=== PATIENT | female | born 1970 ===

== ENCOUNTER 2018-01-27 09:51 | Emergency (ER) | payer OTHER ==
[2018-01-27 09:56] VITALS: BP 115/81; PULSE 91; RESP 18; TEMP 99; O2SAT 100
--- NOTE | 2018-01-27 10:15 | C.PDOC ---
History Of Present Illness 47 y/o female presents to the ED for evaluation of a pruritic rash to the right shoulder and bilateral legs, developing for the past 2 days. Patient states she traveled from [place] on Sunday, and stayed with her grandmother. She then noticed itchy rash and discomfort onset last night. She denies any fevers, lip/tongue swelling, difficulty breathing, or other complaints. Patient denies taking any medication for symptom relief. Time Seen by Provider: 01/27/18 10:10 Chief Complaint (Nursing): Abnormal Skin Integrity History Per: Patient History/Exam Limitations: no limitations Onset/Duration Of Symptoms: Days (x2) Current Symptoms Are (Timing): Still Present Location Of Injury: Right: Leg, Shoulder, Left: Leg Past Medical History Reviewed: Historical Data, Nursing Documentation, Vital Signs Vital Signs: Last Vital Signs Temp 99 F 01/27/18 09:53 Pulse 91 H 01/27/18 09:53 Resp 18 01/27/18 09:53 BP 115/81 01/27/18 09:53 Pulse Ox 100 01/27/18 09:53 Surgical History: Back Surgery, Family History: States: No Known Family Hx - Social History Hx Tobacco Use: Yes Hx Alcohol Use: Yes Hx Substance Use: No - Immunization History Hx Tetanus Toxoid Vaccination: No Hx Influenza Vaccination: No Hx Pneumococcal Vaccination: No Review Of Systems Except As Marked, All Systems Reviewed And Found Negative. Constitutional: Negative for: Fever, Chills ENT: Negative for: Mouth Swelling, Throat Swelling Respiratory: Negative for: Shortness of Breath Skin: Positive for: Rash Physical Exam - Physical Exam Appears: Well, Non-toxic, No Acute Distress Skin: Warm, Dry, Rash (bite-like erythematous papules with surrounding erythema noted to right shoulder and b/l legs) Head: Atraumatic, Normacephalic Eye(s): bilateral: Normal Inspection Throat: Normal (airway patent), No Erythema, Other (No stridor) Chest: Symmetrical Respiratory: No Accessory Muscle Use, Other (Speaking in full sentences, no respiratory distress) Extremity: Bilateral: Atraumatic, Normal ROM Pulses: Left Radial: Normal, Right Radial: Normal Neurological/Psych: Oriented x3, Normal Speech, Normal Motor, Normal Sensation Gait: Steady ED Course And Treatment O2 Sat by Pulse Oximetry: 100 (RA) Pulse Ox Interpretation: Normal Medical Decision Making Medical Decision Making: Impression: Insect bites Plan: Counseled patient regarding diagnosis, advised to avoid possible exposure to bugs and throw away contaminated objects. Patient will be discharged home with Triamcinolone 0.1% cream, instructed to follow up with PMD. Disposition Counseled Patient/Family Regarding: Diagnosis, Need For Followup, Rx Given - Disposition Referrals: Non [facility] Provider, [Non-Staff] - Disposition: HOME/ ROUTINE Disposition Time: 10:14 Condition: GOOD Additional Instructions: FOLLOW UP WITH PMD ON SUNDAY FOR RE-EVALUATION. TAKE ALEXANDER 180 MG IN AM NEEDED FOR ITCH AND BENADRYL 25 MG AT BED TIME NEEDED FOR ITCH. IF SYMPTOMS GET WORSE OR ANY NEW CONCERNING SYMPTOMS DEVELOP RETURN TO ED. Prescriptions: Triamcinolone 0.1% [Triamcinolone 0.1% Cream] 1 apful TP BID #60 g Instructions: Bedbugs Forms: [employer] (Kyrgyz) - Clinical Impression Clinical Impression: Insect bite - PA / CORE INSPECTOR / Resident Statement MD/DO has reviewed & agrees with the documentation as recorded. - Scribe Statement The provider has reviewed the documentation as recorded by the Scribe (Ale Mack) All medical record entries made by the Scribe were at my direction and personally dictated by me. I have reviewed the chart and agree that the record accurately reflects my personal performance of the history, physical exam, medical decision making, and the department course for this patient. I have also personally directed, reviewed, and agree with the discharge instructions and disposition.
== END 2018-01-27 10:30 | disposition home or self-care (01) ==
LOC: C.ER 09:51
DX: S40.261A Insect bite (nonvenomous) of right shoulder, initial encounter (principal); S80.862A Insect bite (nonvenomous), left lower leg, initial encounter; S80.861A Insect bite (nonvenomous), right lower leg, initial encounter; W57.XXXA Bitten or stung by nonvenomous insect and other nonvenomous arthropods, initial encounter